=== PATIENT | male | born 1970 | race Two or more races ===

== ENCOUNTER 2017-01-31 16:51 | Emergency (ER) | payer OTHER ==
[~2017-01-31] VITALS: Ht 165.1 cm; Wt 70.3 kg
--- NOTE | ~2017-01-31 | CR58 ---
[facility] A Service of [facility] RADIOLOGY TEXT RESULTS PATIENT: MICHELLE TOBIN LOCATION: [facility] : [birth year] UNIT #: [id number] AGE: [address]: Mayte Brush MD SEX: M ORDER DR: [id number] [facility] [address] [place], [place] [address] [id number] E MR#: [id number] Acc #: [id number] NAME: MICHELLE TOBIN : 1970 SEX: M STUDY DATE/TIME: 01/31/2017 21:34 UNIT: [facility] ROOM: STUDY DESCRIPTION: CR Cervical Spine 2 or 3 Views Attending Physician: Mayte Brush M.D. Ordering Physician: Darrius Ghosh D.O. Primary Care Physician: Primary Care Physician No MEDICAL IMAGING REPORT This report is preliminary unless electronic signature is present EXAM Cervical spine series, 01/31/2017 HISTORY Pain. No known injury. Pain 01/30/2017 began. FINDINGS AP, lateral, swimmers and open-mouth odontoid views of the cervical spine are presented. No traumatic fracture or malalignment. Vertebral body heights and intervertebral disc space heights are within normal limits. Facet joint relationships are normal. The C1-C2 relationship is normal. The odontoid process is intact. Prevertebral soft tissues are unremarkable. The lung apices are clear. The visualized upper bony thorax is unremarkable. Patient is missing some teeth. If further evaluation of spinal canal and neural foraminal contents would assist in patient management, consider elective cervical spine MRI if patient is a candidate for elective CT. Dictated by... Jesús Lorenzo M.D. THIS IS AN ELECTRONICALLY VERIFIED REPORT Jesús Lorenzo M.D. at 02/01/2017 1:22 PM GUILLERMO/evangelist TD: 01/31/2017 22:57 JOB #: [id number] MEDICAL IMAGING REPORT Page 1 of 1 COPY
--- NOTE | ~2017-01-31 | CT16 ---
[facility] A Service of [facility] RADIOLOGY TEXT RESULTS PATIENT: MICHELLE TOBIN LOCATION: [facility] : 70 UNIT #: [id number] AGE: [address]: Mayte Brush MD SEX: M ORDER DR: [id number] [facility] [address] [place], [place] [address] [id number] E MR#: [id number] Acc #: [id number] NAME: MICHELLE TOBIN : 1970 SEX: M STUDY DATE/TIME: 01/31/2017 21:59 UNIT: [facility] ROOM: STUDY DESCRIPTION: CT Angio Chest for PE Attending Physician: Mayte Brush M.D. Ordering Physician: Darrius Ghosh D.O. Primary Care Physician: No Primary Care Physician MEDICAL IMAGING REPORT This report is preliminary unless electronic signature is present EXAMINATION CTA chest, PE protocol, with IV contrast. DATE 01/31/2017 HISTORY 46-year-old male with right upper back pain, neck pain and right arm pain and headache for 2 days. COMPARISON None. PROCEDURE 2 mm axial images through the chest after IV contrast administration. 3-D coronal MIP reformatted images were obtained. This CT exam was performed with one or more of the following radiation dose reduction techniques: automatic exposure control, adjustment of mA and/or kV according to patient size, and iterative reconstruction. Of note, the initial study did not include the upper portion the lung zones, necessitating repeated attempts at imaging and repeat contrast administration. FINDINGS No pulmonary embolism, aortic aneurysm or dissection is seen. Heart size appears within normal limits. No pericardial effusion. No pleural effusion. No pneumothorax. No pathologic adenopathy. Paraseptal emphysematous changes are demonstrated in the bilateral upper lobes, right greater than left. No acute airspace disease. Included portions of the upper abdominal organs appear within normal limits. Subcentimeter low-density right renal lesions favored to represent cysts based upon statistics. No acute osseous abnormalities are identified. [facility] A Service [facility] RADIOLOGY TEXT RESULTS PATIENT: MICHEL[facility] TOBIN [id number] [birth year] UNIT #: [id number] AGE: [address]: Mayte Brush MD SEX: M ORDER DR: IMPRESSION 1. No acute chest findings. No pulmonary embolism. 2. Mild paraseptal emphysematous changes, greatest in the upper lobes. 3. No acute airspace disease. Dictated by... Ingrid Mina M.D. THIS IS AN ELECTRONICALLY VERIFIED REPORT Ingrid Mina M.D. at 02/01/2017 9:50 PM ANGELINA/felipe TD: 01/31/2017 23:33 JOB #: [id number] MEDICAL IMAGING REPORT Page 1 of 1 COPY
--- NOTE | ~2017-01-31 | CT71 ---
[facility] A Service of [facility] RADIOLOGY TEXT RESULTS PATIENT: MICHELLE TOBIN LOCATION: [facility] : 70 UNIT #: [id number] AGE: [address]: Mayte Brush MD SEX: M ORDER DR: [id number] [facility] [address] [place], [place] [address] [id number] E MR#: [id number] Acc #: [id number] NAME: MICHELLE TOBIN : 1970 SEX: M STUDY DATE/TIME: 01/31/2017 21:55 UNIT: [facility] ROOM: STUDY DESCRIPTION: CT Head Wo Contrast Attending Physician: Mayte Brush M.D. Ordering Physician: Darrius Ghosh D.O. Primary Care Physician: Primary Care Physician No MEDICAL IMAGING REPORT This report is preliminary unless electronic signature is present EXAM CT brain without contrast HISTORY Headache for 2 days. No injury. TECHNIQUE This CT exam was performed with one or more of the following radiation dose reduction techniques: automatic exposure control, adjustment of mA and/or kV according to patient size, and iterative reconstruction. FINDINGS Axial noncontrast images were obtained from the skull base to the vertex. Ventricular size and configuration are normal. There is no evidence of acute infarct or hemorrhage. There are no extra-axial fluid collections. No mass lesion or mass effect is seen. There are no skull fractures. IMPRESSION Normal noncontrast head CT. Dictated by... Jovany Godfrey M.D. THIS IS AN ELECTRONICALLY VERIFIED REPORT Jovany Godfrey M.D. at 02/01/2017 4:33 PM DFLloyd/evangelist TD: 01/31/2017 23:41 JOB #: [id number] [facility] A Service of [facility] RADIOLOGY TEXT RESULTS PATIENT: MICHELLE TOBIN LOCATION: [facility] : 70 UNIT #: [id number] AGE: [address]: Mayte Brush MD SEX: M ORDER DR: MEDICAL IMAGING REPORT Page 1 of 1 COPY
[2017-01-31 18:53] LABS: BASOPHIL% 0.6 % (0-2.5); DIFF IND NO; EOSINOPHIL# 0.4 X10e3 (0-0.7); EOSINOPHIL% 8.3 % (0.0-7.0); HEMOGLOBIN 15.6 gm/dL (13.0-16.0); LYMPHOCYTE# 1.4 X10e3 (1.0-3.5); MEAN CELL VOLUME 95.3 FL (83-96); MEAN CORPUSCULAR HEMOGLOBIN 32.9 PG (28-34); MEAN CORPUSCULAR HGB CONC 34.5 g/dL (30-36); MEAN PLATELET VOLUME 7.8 FL (6.5-11.5); MONOCYTE# 0.5 X10e3 (0-1.0); MONOCYTE% 10.9 % (3.0-12.0); NEUTROPHIL# 2.2 X10e3 (1.5-7.1); NEUTROPHIL% 49.2 % (40-75); PLATELET COUNT 172 X10e3 (140-420); RED BLOOD COUNT 4.72 X10e (3.90-5.60); RED CELL DISTRIBUTION WIDTH 13.4 % (11.0-15.5); WHITE BLOOD COUNT 4.5 X10e3 (4.0-10.5)
[2017-01-31 19:07] LABS: PARTIAL THROMBOPLASTIN TIME 26.4 SECONDS (23.5-31.3); PROTHROMBIN TIME (PATIENT) 11.1 SECONDS (10.0-11.7)
[2017-01-31 19:13] LABS: POC - CKMB 1.9 ng/mL (0.0-7.9); POC - TROPONIN <0.05 ng/mL (<=0.05)
[2017-01-31 19:18] LABS: ALBUMIN SERUM 4.1 g/dL (3.5-5.0); BILIRUBIN, DIRECT 0.1 mg/dL (0.0-0.2); BILIRUBIN,TOTAL 1.1 mg/dL (0.2-2.0); BUN/CREATININE RATIO 13.33; CALCIUM SERUM 9.1 mg/dL (8.4-10.2); CREATININE SERUM 0.9 mg/dL (0.6-1.4); GLOM FILT RATE Estimated 102.1 mL/min (>60); POTASSIUM 4.1 mmol/L (3.5-5.1); PROTEIN TOTAL SERUM 7.1 g/dL (6.0-8.3)
== END 2017-01-31 23:23 | disposition home or self-care (01) ==
LOC: CED 16:51 → CFTX 16:51 → CED 17:38
PROVIDERS: Emergency Medicine
DX: M54.6 Pain in thoracic spine (principal); F17.200 Nicotine dependence, unspecified, uncomplicated
CPT/HCPCS: 36415; 70450; 71275; 72040; 80048; 80076; 82553; 84484; 85025; 85610; 85730; 99284; Q9967